=== PATIENT | male | born 1955 ===

== ENCOUNTER → 2020-03-03 | Outpatient (CLI) | payer BC, OTHER ==
[~2020-03-03] MED LIST: ASPI-496 PO; ATOR20TA37 PO; OMEG-107 PO; OMEP-110 PO; VALA500T8 PO; VITA400C43 PO; VITAMIN B12 PO
== END | disposition home or self-care (01) ==
LOC: CFH 06:39
PROVIDERS: ATTEND Internal Medicine Cardiovascular Disease
DX: I08.1 Rheumatic disorders of both mitral and tricuspid valves (principal); I11.9 Hypertensive heart disease without heart failure; R93.1 Abnormal findings on diagnostic imaging of heart and coronary circulation
CPT/HCPCS: 93306

== ENCOUNTER 2020-03-31 09:32 | Day surgery (SDC) | payer BC, OTHER ==
[~2020-03-31] VITALS: Ht 175.3 cm; Wt 76.3 kg
[2020-03-31] MEDS ORDERED: LISI-167 PO (10:17)
[2020-03-31] MEDS ORDERED: ATOR40TA PO (10:18)
[2020-03-31] MEDS ORDERED: vit d3 (10:19)
[2020-03-31 10:21] VITALS: BP 121/66
[2020-03-31] MEDS ORDERED: SODIUM CHLORIDE 0.9% 1,000 ML IV ONE (11:00)
[2020-03-31] MEDS ORDERED: FENTANYL PF 100 MCG/2ML ONE (11:44)
[2020-03-31] MEDS ORDERED: VERAPAMIL 2.5 MG/ML, 2ML ONE (11:44)
[2020-03-31] MEDS ORDERED: MIDAZOLAM 1 MG/ML, 5ML ONE (11:44)
[2020-03-31] MEDS ORDERED: LIDOCAINE-MPF 1%, 5ML ONE (11:44)
[2020-03-31] MEDS ORDERED: HEPARIN 1,000 UNITS/ML, 10ML ONE (11:44)
[2020-03-31] MEDS ORDERED: SODIUM CHLORIDE 0.9% 1,000 ML IV SCH (14:30)
== END 2020-03-31 16:12 | disposition home or self-care (01) ==
LOC: CACL 09:32
PROVIDERS: ATTEND Internal Medicine Cardiovascular Disease
DX: I34.0 Nonrheumatic mitral (valve) insufficiency (principal); I47.1 Supraventricular tachycardia; I10 Essential (primary) hypertension; E78.5 Hyperlipidemia, unspecified; Z79.82 Long term (current) use of aspirin; Z79.899 Other long term (current) drug therapy
CPT/HCPCS: 93458; 99156; C1769; C1894; J1644; J2250; J3010; Q9967

== ENCOUNTER → 2020-04-17 | Outpatient (CLI) | payer BC, OTHER ==
[~2020-04-17] MED LIST changes: +ATOR40TA PO; +LISI-167 PO; +vit d3
== END | disposition home or self-care (01) ==
LOC: STAR 12:27
PROVIDERS: ATTEND Thoracic Surgery (Cardiothoracic Vascular Surgery)
DX: Z20.822 Contact with and (suspected) exposure to COVID-19 (principal)
CPT/HCPCS: 87635

== ENCOUNTER 2020-04-22 04:27 | Inpatient (IN) | payer BC, OTHER ==
[2020-04-21 14:13] LABS: ALANINE AMINOTRANSFERASE 34 U/L (12-78); ALBUMIN 4.3 g/dL (3.4-5.0); ANION GAP 4 mmol/L (5-15); CALCIUM 9.1 mg/dL (8.5-10.1); CHLORIDE 105 mmol/L (98-107); CREATININE 1.24 mg/dL (0.7-1.3)
[2020-04-21 14:14] LABS: INTERNATIONAL NORMALIZED RATIO 1.03 (0.93-1.1); MEAN PLATELET VOLUME 8.2 fL (7.4-10.4); PROTHROMBIN TIME 10.9 Seconds (9.6-11.5)
[2020-04-21 14:16] LABS: ALKALINE PHOSPHATASE 122 U/L (45-117); BILIRUBIN,TOTAL 0.5 mg/dL (0.2-1.0)
[2020-04-21 14:22] LABS: BASOPHILS % (AUTO) 0 % (0-1); EOSINOPHILS % (AUTO) 1 % (1-7); LYMPHOCYTES % (AUTO) 23 % (22-44); MEAN CORPUSCULAR HEMOGLOBIN 31.6 pg (27.5-34.5); MEAN CORPUSCULAR HGB CONC 33.8 g/dL (33.2-36.2); MONOCYTES % (AUTO) 7 % (2-9); NEUTROPHILS % (AUTO) 69 % (42-75); PLATELET COUNT 215 x10^3/uL (130-400); RED BLOOD COUNT 5.01 x10^6/uL (4.38-5.82); RED CELL DISTRIBUTION WIDTH 12.8 % (9.4-14.8)
[2020-04-21 14:23] LABS: MD NO
[2020-04-21 14:52] LABS: MICROSCOPIC NOT IND
[~2020-04-22] VITALS: Ht 175.3 cm; Wt 72.4 kg
[~2020-04-22 04:27] MED LIST changes: +[UNRECOGNIZED DRUG - CODE] PO; -vit d3; +vit d3 PO
[2020-04-22 04:42] VITALS: BP_SYST 122; BP_SYST 125; BP_DIAS 69; BP_DIAS 78
[2020-04-22] MEDS ORDERED: DO NOT GIVE XX SCH (05:00)
[2020-04-22] MEDS ORDERED: INSULIN LISPRO 100 UNITS/ML, PEN SQ-INSULIN SCH (05:00)
[2020-04-22] MEDS ORDERED: CHLORHEXIDINE 15 ML UDC MM SCH (05:00)
[2020-04-22] MEDS ORDERED: DO NOT GIVE MC SCH (05:00)
[2020-04-22] MEDS: SODIUM CHLORIDE FLUSH 10ML SYR IVF SCH ×2 (05:44→20:56)
[2020-04-22] MEDS: MUPIROCIN OINT 2%, 22GM TP SCH ×2 (05:44→20:57)
[2020-04-22] MEDS ORDERED: FENTANYL PF 250 MCG/5ML ONE ×4 (08:31→08:32)
[2020-04-22] MEDS ORDERED: MIDAZOLAM 10MG/2 ML ONE (08:31)
[2020-04-22] MEDS ORDERED: VANCOMYCIN 1,100 MG in SODIUM CHLORIDE 0.9% 250 ML IV PRN (09:00)
[2020-04-22] MEDS ORDERED: EPINEPHRINE 5 MG in SODIUM CHLORIDE 0.9% 245 ML IV PRN (09:00)
[2020-04-22] MEDS ORDERED: POTASSIUM CHLORIDE 80 MEQ, SODIUM BICARBONATE 8.4% 10 MEQ, MAGNESIUM SULFATE 0.5 GM, LI... IV PRN (09:00)
[2020-04-22] MEDS ORDERED: ALBUMIN HUMAN 5% 500 ML IV PRN (09:00)
[2020-04-22] MEDS ORDERED: PHENYLEPHRINE 50 MG in SODIUM CHLORIDE 0.9% 245 ML IV PRN ×2 (09:00→13:00)
[2020-04-22] MEDS ORDERED: DEXMEDETOMIDINE 200 MCG in SODIUM CHLORIDE 0.9% 48 ML IV PRN ×2 (09:00→13:00)
[2020-04-22] MEDS ORDERED: REGULAR INSULIN 100 UNITS in SODIUM CHLORIDE 0.9% 99 ML IV PRN ×2 (09:00→13:00)
[2020-04-22] MEDS ORDERED: CEFUROXIME 1.5 GM in SODIUM CHLORIDE 0.9% 50 ML IVPB PRN (09:00)
[2020-04-22] MEDS ORDERED: MANNITOL PMX 20% 500 ML IVPB PRN (09:00)
[2020-04-22] MEDS ORDERED: PROPOFOL 10 MG/ML, 20ML ONE (09:52)
[2020-04-22] MEDS ORDERED: ROCURONIUM 10MG/ML,5ML ONE ×2 (09:52)
[2020-04-22] MEDS ORDERED: AMINOCAPROIC ACID 250 MG/ML, 20ML ONE ×2 (09:52)
[2020-04-22] MEDS ORDERED: PROTAMINE SULFATE 10 MG/ML, 25ML ONE ×2 (10:23)
[2020-04-22] MEDS ORDERED: SODIUM BICARBONATE 1 MEQ/ML, 50ML VIAL ONE (12:21)
[2020-04-22] MEDS ORDERED: ALBUMIN HUMAN 25% 50 ML ONE (12:22)
[2020-04-22] MEDS ORDERED: LIDOCAINE 2%, 20ML ONE (12:22)
[2020-04-22] MEDS ORDERED: methylPREDNISolone SOD SUCC 125 MG/2 ML ONE (12:22)
[2020-04-22] MEDS ORDERED: HEPARIN 1,000 UNITS/ML, 30ML ONE (12:22)
[2020-04-22 12:38] LABS: GLUCOSE BY BLOOD GAS ANALYZER 144 mg/dL (70-110); HEMOGLOBIN BY BLOOD GAS ANALYZ 12.8 g/dL (14.0-18.0); POTASSIUM BY BLOOD GAS ANALYZR 4.3 mmol/L (3.6-5.5)
[2020-04-22 12:57] LABS: INTERNATIONAL NORMALIZED RATIO 1.37 (0.93-1.1); PROTHROMBIN TIME 14.6 Seconds (9.6-11.5)
[2020-04-22] MEDS ORDERED: SODIUM BICARB 8.4%, 50ML SYRINGE ONE (12:57)
[2020-04-22] MEDS ORDERED: EPINEPHRINE 5 MG in SODIUM CHLORIDE 0.9% 245 ML IVPB PRN (13:00)
[2020-04-22] MEDS: KSCALE TO 4.5 IV SCH ×2 (13:00→19:00)
[2020-04-22] MEDS ORDERED: VANCOMYCIN 1,100 MG in SODIUM CHLORIDE 0.9% 250 ML IV SCH (13:00)
[2020-04-22] MEDS ORDERED: ACETAMINOPHEN 325 MG TABLET PO PRN (13:00)
[2020-04-22] MEDS ORDERED: ACETAMINOPHEN 650 MG SUPP PR PRN (13:00)
[2020-04-22] MEDS ORDERED: BISACODYL 5 MG EC TABLET PO PRN (13:00)
[2020-04-22] MEDS ORDERED: OXYcodone IR 5MG TABLET PO PRN (13:00)
[2020-04-22] MEDS ORDERED: NITROGLYCERIN/D5W PMX 250 ML IV PRN (13:00)
[2020-04-22] MEDS ORDERED: PROCHLORPERAZINE 5 MG/ML, 2ML IV PRN (13:00)
[2020-04-22] MEDS ORDERED: CEFUROXIME 1.5 GM in SODIUM CHLORIDE 0.9% 50 ML IVPB SCH (13:00)
[2020-04-22] MEDS ORDERED: BISACODYL 10 MG SUPP PR PRN (13:00)
[2020-04-22] MEDS ORDERED: DOBUTAMINE 250 MG in SODIUM CHLORIDE 0.9% 230 ML IV PRN (13:00)
[2020-04-22] MEDS ORDERED: ONDANSETRON 2MG/ML, 2ML IVPush PRN (13:00)
[2020-04-22] MEDS ORDERED: HYDROcodone/APAP 10/325 MG TABLET PO PRN (13:00)
[2020-04-22] MEDS ORDERED: SODIUM CHLORIDE 0.9% 1,000 ML IV SCH (13:00)
[2020-04-22] MEDS ORDERED: PHARMACY INSTRUCTION (CSU AMIODARONE) MC SCH (13:00)
[2020-04-22] MEDS ORDERED: VASOPRESSIN 20 UNIT in SODIUM CHLORIDE 0.9% 99 ML IV PRN (13:00)
[2020-04-22] MEDS: LACTATED RINGERS 500 ML IVBOLUS PRN ×5 (13:00→20:01)
[2020-04-22] MEDS ORDERED: MIDAZOLAM 1 MG/ML, 2ML IV PRN (13:00)
[2020-04-22] MEDS: SODIUM BICARB 8.4%, 50ML SYRINGE IVPush PRN ×4 (14:00→18:05)
[2020-04-22] MEDS: MAGNESIUM SULFATE 1 GM in SODIUM CHLORIDE 0.9% 50 ML IV SCH (14:26)
[2020-04-22] MEDS ORDERED: ALBUMIN HUMAN 5% 500 ML IV ONE (15:30)
[2020-04-22] MEDS ORDERED: LACTATED RINGERS 1,000 ML IVBOLUS PRN (15:30)
[2020-04-22] MEDS: FENTANYL PF 100 MCG/2ML IVPush PRN ×2 (15:43→18:28)
[2020-04-22] MEDS ORDERED: INSULIN REGULAR 100 UNITS/ML, 3ML VIAL ONE (17:19)
[2020-04-22] MEDS ORDERED: POTASSIUM CHLORIDE PMX 100 ML IV ONE (19:00)
[2020-04-22] MEDS: DOCUSATE 100 MG CAPSULE PO SCH (20:55)
[2020-04-22] MEDS: HYDROcodone/APAP 5/325 TABLET PO PRN (20:56)
[2020-04-22] MEDS: MUPIROCIN OINT 2%, 22GM NAS SCH (20:56)
[2020-04-22] MEDS: VANCOMYCIN 1,100 MG in SODIUM CHLORIDE 0.9% 250 ML IV SCH (22:01)
[2020-04-22] MEDS: CEFUROXIME 1.5 GM in SODIUM CHLORIDE 0.9% 50 ML IVPB SCH (23:06)
[2020-04-23] MEDS: KSCALE TO 4.5 IV SCH ×2 (01:00→06:45)
[2020-04-23] MEDS: HYDROcodone/APAP 5/325 TABLET PO PRN ×2 (05:21→22:05)
[2020-04-23 06:10] LABS: BASOPHILS % (AUTO) 1 % (0-1); EOSINOPHILS % (AUTO) 0 % (1-7); LYMPHOCYTES % (AUTO) 4 % (22-44); MEAN CORPUSCULAR HEMOGLOBIN 31.8 pg (27.5-34.5); MEAN CORPUSCULAR HGB CONC 33.8 g/dL (33.2-36.2); MEAN PLATELET VOLUME 8.2 fL (7.4-10.4); MONOCYTES % (AUTO) 8 % (2-9); NEUTROPHILS % (AUTO) 87 % (42-75); PLATELET COUNT 143 x10^3/uL (130-400); RED BLOOD COUNT 3.49 x10^6/uL (4.38-5.82)
[2020-04-23 06:24] LABS: ANION GAP 3 mmol/L (5-15); CALCIUM 7.5 mg/dL (8.5-10.1); CHLORIDE 114 mmol/L (98-107); CREATININE 0.91 mg/dL (0.7-1.3)
[2020-04-23 06:37] LABS: INTERNATIONAL NORMALIZED RATIO 1.1 (0.93-1.1); PROTHROMBIN TIME 11.7 Seconds (9.6-11.5)
[2020-04-23 07:13] LABS: MD SCAN
[2020-04-23] MEDS: WARFARIN BIOPROSTHETIC VALVE PROTOCOL 2-3 XX SCH (09:00)
[2020-04-23] MEDS: METOPROLOL TARTRATE 25 MG TAB PO/NG SCH ×2 (09:38→22:27)
[2020-04-23] MEDS: SODIUM CHLORIDE FLUSH 10ML SYR IVF SCH ×2 (09:38→22:28)
[2020-04-23] MEDS: CHLORHEXIDINE 15 ML UDC MM SCH ×2 (09:39→22:03)
[2020-04-23] MEDS: ASPIRIN 81 MG TABLET EC PO SCH (09:39)
[2020-04-23] MEDS: MUPIROCIN OINT 2%, 22GM NAS SCH ×2 (09:39→22:05)
[2020-04-23] MEDS: DOCUSATE 100 MG CAPSULE PO SCH ×2 (09:39→22:03)
[2020-04-23] MEDS: VANCOMYCIN 1,100 MG in SODIUM CHLORIDE 0.9% 250 ML IV SCH (09:52)
[2020-04-23] MEDS: CEFUROXIME 1.5 GM in SODIUM CHLORIDE 0.9% 50 ML IVPB SCH (11:46)
[2020-04-23] MEDS: MAGNESIUM SULFATE 1 GM in SODIUM CHLORIDE 0.9% 50 ML IV SCH (13:32)
[2020-04-23] MEDS ORDERED: WARFARIN 5 MG TABLET PO-COUM ONE (18:00)
[2020-04-23] MEDS: INSULIN LISPRO 100 UNITS/ML, PEN SQ-INSULIN SCH (21:00)
[2020-04-23 21:42] VITALS: BP 111/70
[2020-04-24 04:03] VITALS: BP 145/71
[2020-04-24 04:43] LABS: BASOPHILS % (AUTO) 0 % (0-1); EOSINOPHILS % (AUTO) 0 % (1-7); LYMPHOCYTES % (AUTO) 7 % (22-44); MEAN CORPUSCULAR HEMOGLOBIN 31.8 pg (27.5-34.5); MEAN CORPUSCULAR HGB CONC 34.2 g/dL (33.2-36.2); MEAN PLATELET VOLUME 8.3 fL (7.4-10.4); MONOCYTES % (AUTO) 8 % (2-9); NEUTROPHILS % (AUTO) 84 % (42-75); PLATELET COUNT 125 x10^3/uL (130-400); RED CELL DISTRIBUTION WIDTH 13.2 % (9.4-14.8)
[2020-04-24 04:55] LABS: INTERNATIONAL NORMALIZED RATIO 1.07 (0.93-1.1); PROTHROMBIN TIME 11.4 Seconds (9.6-11.5)
[2020-04-24 04:56] LABS: ANION GAP 2 mmol/L (5-15); CALCIUM 8.2 mg/dL (8.5-10.1); CHLORIDE 106 mmol/L (98-107)
[2020-04-24 04:57] LABS: CREATININE 0.87 mg/dL (0.7-1.3)
[2020-04-24 05:46] LABS: MD SCAN
[2020-04-24] MEDS: INSULIN LISPRO 100 UNITS/ML, PEN SQ-INSULIN SCH ×3 (07:00→16:00)
[2020-04-24] MEDS: CHLORHEXIDINE 15 ML UDC MM SCH ×2 (08:07→20:14)
[2020-04-24] MEDS: ASPIRIN 81 MG TABLET EC PO SCH (08:08)
[2020-04-24] MEDS: DOCUSATE 100 MG CAPSULE PO SCH ×2 (08:08→20:13)
[2020-04-24] MEDS: SODIUM CHLORIDE FLUSH 10ML SYR IVF SCH ×2 (08:08→20:14)
[2020-04-24] MEDS: MUPIROCIN OINT 2%, 22GM NAS SCH ×2 (08:09→20:14)
[2020-04-24] MEDS ORDERED: POTASSIUM CHLORIDE 10 MEQ TABLET.ER PO SCH (09:00)
[2020-04-24] MEDS ORDERED: METOPROLOL TARTRATE 25 MG TAB PO/NG SCH (09:00)
[2020-04-24] MEDS: WARFARIN BIOPROSTHETIC VALVE PROTOCOL 2-3 XX SCH (09:00)
[2020-04-24 09:22] VITALS: BP 114/64
[2020-04-24] MEDS: OMEPRAZOLE 20 MG CAPSULE.DR PO SCH (11:02)
[2020-04-24] MEDS: FUROSEMIDE 40 MG/4 ML IV SCH (11:02)
[2020-04-24] MEDS: POTASSIUM CHLORIDE 20 MEQ TAB.ER.PRT PO SCH (11:02)
[2020-04-24 13:44] VITALS: BP 118/70
[2020-04-24] MEDS: MAGNESIUM SULFATE 1 GM in SODIUM CHLORIDE 0.9% 50 ML IV SCH (14:16)
[2020-04-24] MEDS ORDERED: WARFARIN 5 MG TABLET PO-COUM ONE (18:00)
[2020-04-24 20:07] VITALS: BP 103/65
[2020-04-24] MEDS: ATORVASTATIN 40 MG TABLET PO SCH (20:13)
[2020-04-25 03:13] LABS: BASOPHILS % (AUTO) 0 % (0-1); EOSINOPHILS % (AUTO) 0 % (1-7); LYMPHOCYTES % (AUTO) 9 % (22-44); MEAN CORPUSCULAR HGB CONC 34.2 g/dL (33.2-36.2); MEAN PLATELET VOLUME 8.7 fL (7.4-10.4); MONOCYTES % (AUTO) 8 % (2-9); NEUTROPHILS % (AUTO) 82 % (42-75); PLATELET COUNT 136 x10^3/uL (130-400); RED BLOOD COUNT 3.57 x10^6/uL (4.38-5.82); RED CELL DISTRIBUTION WIDTH 12.7 % (9.4-14.8)
[2020-04-25 03:16] VITALS: BP 102/62
[2020-04-25 03:22] LABS: ANION GAP 4 mmol/L (5-15); CALCIUM 8.3 mg/dL (8.5-10.1); CHLORIDE 107 mmol/L (98-107); CREATININE 0.91 mg/dL (0.7-1.3)
[2020-04-25 03:23] LABS: INTERNATIONAL NORMALIZED RATIO 1.21 (0.93-1.1); PROTHROMBIN TIME 12.9 Seconds (9.6-11.5)
[2020-04-25 03:32] LABS: MD SCAN
[2020-04-25] MEDS: POTASSIUM CHLORIDE 20 MEQ TAB.ER.PRT PO SCH (07:55)
[2020-04-25] MEDS: ASPIRIN 81 MG TABLET EC PO SCH (07:55)
[2020-04-25] MEDS: DOCUSATE 100 MG CAPSULE PO SCH ×2 (07:55→21:33)
[2020-04-25] MEDS: FUROSEMIDE 40 MG/4 ML IV SCH (07:56)
[2020-04-25] MEDS: SODIUM CHLORIDE FLUSH 10ML SYR IVF SCH ×2 (07:56→21:32)
[2020-04-25] MEDS: OMEPRAZOLE 20 MG CAPSULE.DR PO SCH (07:56)
[2020-04-25] MEDS: MUPIROCIN OINT 2%, 22GM NAS SCH ×2 (08:00→21:32)
[2020-04-25 08:10] VITALS: BP 124/73
[2020-04-25] MEDS: WARFARIN BIOPROSTHETIC VALVE PROTOCOL 2-3 XX SCH (09:00)
[2020-04-25 13:47] VITALS: BP 110/61
[2020-04-25] MEDS ORDERED: WARFARIN 7.5 MG TABLET PO-COUM SCH (18:00)
[2020-04-25 20:16] VITALS: BP 112/55
[2020-04-25] MEDS: ATORVASTATIN 40 MG TABLET PO SCH (21:32)
[2020-04-26 01:04] VITALS: BP 114/71
[2020-04-26 06:04] LABS: BASOPHILS % (AUTO) 0 % (0-1); EOSINOPHILS % (AUTO) 1 % (1-7); LYMPHOCYTES % (AUTO) 15 % (22-44); MEAN CORPUSCULAR HEMOGLOBIN 31.7 pg (27.5-34.5); MEAN CORPUSCULAR HGB CONC 34.2 g/dL (33.2-36.2); MEAN PLATELET VOLUME 8.3 fL (7.4-10.4); MONOCYTES % (AUTO) 11 % (2-9); NEUTROPHILS % (AUTO) 73 % (42-75); PLATELET COUNT 163 x10^3/uL (130-400); RED BLOOD COUNT 3.85 x10^6/uL (4.38-5.82); RED CELL DISTRIBUTION WIDTH 12.8 % (9.4-14.8)
[2020-04-26 06:05] LABS: MD NO
[2020-04-26 06:13] LABS: INTERNATIONAL NORMALIZED RATIO 1.7 (0.93-1.1)
[2020-04-26 06:15] LABS: ANION GAP 3 mmol/L (5-15); CALCIUM 8.5 mg/dL (8.5-10.1); CHLORIDE 106 mmol/L (98-107); CREATININE 0.86 mg/dL (0.7-1.3)
[2020-04-26 07:00] VITALS: BP 105/62
[2020-04-26] MEDS: WARFARIN BIOPROSTHETIC VALVE PROTOCOL 2-3 XX SCH (08:04)
[2020-04-26] MEDS: DOCUSATE 100 MG CAPSULE PO SCH ×2 (08:16→21:45)
[2020-04-26] MEDS: FUROSEMIDE 40 MG/4 ML IV SCH (08:17)
[2020-04-26] MEDS: ASPIRIN 81 MG TABLET EC PO SCH (08:17)
[2020-04-26] MEDS: OMEPRAZOLE 20 MG CAPSULE.DR PO SCH (08:17)
[2020-04-26] MEDS: POTASSIUM CHLORIDE 20 MEQ TAB.ER.PRT PO SCH (08:17)
[2020-04-26] MEDS: MUPIROCIN OINT 2%, 22GM NAS SCH ×2 (08:17→21:44)
[2020-04-26] MEDS: SODIUM CHLORIDE FLUSH 10ML SYR IVF SCH ×2 (08:18→21:45)
[2020-04-26 12:45] VITALS: BP 107/64
[2020-04-26] MEDS ORDERED: WARFARIN 7.5 MG TABLET PO-COUM ONE (18:00)
[2020-04-26] MEDS: ATORVASTATIN 40 MG TABLET PO SCH (21:44)
[2020-04-26 21:47] VITALS: BP 119/74
[2020-04-27 02:00] VITALS: BP 110/63
[2020-04-27 06:03] LABS: BASOPHILS % (AUTO) 0 % (0-1); EOSINOPHILS % (AUTO) 1 % (1-7); LYMPHOCYTES % (AUTO) 18 % (22-44); MEAN CORPUSCULAR HEMOGLOBIN 31.8 pg (27.5-34.5); MEAN CORPUSCULAR HGB CONC 34.5 g/dL (33.2-36.2); MEAN PLATELET VOLUME 7.9 fL (7.4-10.4); MONOCYTES % (AUTO) 11 % (2-9); NEUTROPHILS % (AUTO) 69 % (42-75); PLATELET COUNT 199 x10^3/uL (130-400); RED BLOOD COUNT 4.14 x10^6/uL (4.38-5.82); RED CELL DISTRIBUTION WIDTH 12.8 % (9.4-14.8)
[2020-04-27 06:08] LABS: ANION GAP 7 mmol/L (5-15); CALCIUM 8.7 mg/dL (8.5-10.1); CHLORIDE 106 mmol/L (98-107)
[2020-04-27 06:19] LABS: MD NO
[2020-04-27 07:21] VITALS: BP 110/67
[2020-04-27] MEDS: DOCUSATE 100 MG CAPSULE PO SCH ×2 (08:06→20:19)
[2020-04-27] MEDS: POTASSIUM CHLORIDE 20 MEQ TAB.ER.PRT PO SCH (08:06)
[2020-04-27] MEDS: OMEPRAZOLE 20 MG CAPSULE.DR PO SCH (08:06)
[2020-04-27] MEDS: ASPIRIN 81 MG TABLET EC PO SCH (08:06)
[2020-04-27] MEDS: FUROSEMIDE 40 MG/4 ML IV SCH (08:07)
[2020-04-27] MEDS: MUPIROCIN OINT 2%, 22GM NAS SCH (08:07)
[2020-04-27] MEDS: SODIUM CHLORIDE FLUSH 10ML SYR IVF SCH ×2 (08:07→20:19)
[2020-04-27 10:36] LABS: INTERNATIONAL NORMALIZED RATIO 1.62 (0.93-1.1); PROTHROMBIN TIME 17.2 Seconds (9.6-11.5)
[2020-04-27 13:39] VITALS: BP 96/65
[2020-04-27] MEDS ORDERED: WARFARIN 10 MG TABLET PO-COUM ONE (18:00)
[2020-04-27 19:03] VITALS: BP 112/61
[2020-04-27] MEDS: ATORVASTATIN 40 MG TABLET PO SCH (20:19)
[2020-04-28 00:42] VITALS: BP 119/67
[2020-04-28 05:09] LABS: ANION GAP 8 mmol/L (5-15); CALCIUM 8.8 mg/dL (8.5-10.1); CHLORIDE 104 mmol/L (98-107); CREATININE 0.94 mg/dL (0.7-1.3)
[2020-04-28 05:36] LABS: INTERNATIONAL NORMALIZED RATIO 1.43 (0.93-1.1); PROTHROMBIN TIME 15.2 Seconds (9.6-11.5)
[2020-04-28 06:49] VITALS: BP 116/69
[2020-04-28] MEDS ORDERED: FENTANYL PF 100 MCG/2ML ONE (07:11)
[2020-04-28] MEDS ORDERED: CEFAZOLIN PMX 1GM/50ML 50 ML ONE (07:11)
[2020-04-28] MEDS ORDERED: MIDAZOLAM 1 MG/ML, 5ML ONE (07:11)
[2020-04-28] MEDS ORDERED: LIDOCAINE 1%, 20ML ONE (07:12)
[2020-04-28] MEDS ORDERED: CEFAZOLIN 1,000 MG ONE (07:12)
[2020-04-28] MEDS ORDERED: CEFAZOLIN PMX 1GM/50ML 50 ML IVPB ONE ×2 (08:00)
[2020-04-28] MEDS: DOCUSATE 100 MG CAPSULE PO SCH ×2 (09:00→20:07)
[2020-04-28] MEDS ORDERED: HOLD MEDICATION MC PRN (09:30)
[2020-04-28] MEDS ORDERED: CEFAZOLIN PMX 1GM/50ML 50 ML IVPB SCH (09:30)
[2020-04-28] MEDS: LISINOPRIL 10 MG TABLET PO SCH ×2 (10:00→20:07)
[2020-04-28 12:13] VITALS: BP 105/70
[2020-04-28] MEDS: ASPIRIN 81 MG TABLET EC PO SCH (14:05)
[2020-04-28] MEDS: OMEPRAZOLE 20 MG CAPSULE.DR PO SCH (14:05)
[2020-04-28] MEDS: SODIUM CHLORIDE FLUSH 10ML SYR IVF SCH ×3 (14:06→20:07)
[2020-04-28] MEDS: ACETAMINOPHEN 325 MG TABLET PO PRN (16:33)
[2020-04-28] MEDS ORDERED: WARFARIN 2.5 MG TABLET PO-COUM ONE (18:00)
[2020-04-28] MEDS ORDERED: WARFARIN 10 MG TABLET PO-COUM ONE (18:00)
[2020-04-28 19:52] VITALS: BP 116/74
[2020-04-28] MEDS: ATORVASTATIN 40 MG TABLET PO SCH (20:07)
[2020-04-29] MEDS ORDERED: CEFAZOLIN PMX 1GM/50ML 50 ML IV ONE
[2020-04-29 00:53] VITALS: BP 98/60
[2020-04-29] MEDS: ACETAMINOPHEN 325 MG TABLET PO PRN (00:59)
[2020-04-29 05:23] LABS: INTERNATIONAL NORMALIZED RATIO 1.7 (0.93-1.1)
[2020-04-29 05:25] LABS: ANION GAP 5 mmol/L (5-15); CALCIUM 8.6 mg/dL (8.5-10.1); CHLORIDE 107 mmol/L (98-107)
[2020-04-29 05:27] LABS: CREATININE 0.99 mg/dL (0.7-1.3)
[2020-04-29 07:49] VITALS: BP 96/62
[2020-04-29] MEDS: SODIUM CHLORIDE FLUSH 10ML SYR IVF SCH ×2 (08:19→08:38)
[2020-04-29] MEDS: WARFARIN BIOPROSTHETIC VALVE PROTOCOL 2-3 XX SCH (08:19)
[2020-04-29] MEDS: ASPIRIN 81 MG TABLET EC PO SCH (08:37)
[2020-04-29] MEDS: LISINOPRIL 10 MG TABLET PO SCH ×2 (08:37→08:38)
[2020-04-29] MEDS: OMEPRAZOLE 20 MG CAPSULE.DR PO SCH (08:37)
[2020-04-29] MEDS: DOCUSATE 100 MG CAPSULE PO SCH (08:37)
[2020-04-29] MEDS ORDERED: WARF-36 PO (10:11)
[2020-04-29] MEDS ORDERED: TRAM50TA2 PO (10:11)
[2020-04-29] MEDS ORDERED: LISI-167 PO (10:11)
[2020-04-29] MEDS ORDERED: FURO-93 PO (10:16)
[2020-04-29] MEDS ORDERED: POTA10TA6 PO (10:16)
== END 2020-04-29 11:51 | disposition home health service (06) | DRG 220 ==
LOC: 5SO 04:27 → CCU 11:24 → 5SO 04-23 15:35 → DCLOUNGE 04-29 11:32
PROVIDERS: ADMIT Thoracic Surgery (Cardiothoracic Vascular Surgery); ATTEND Thoracic Surgery (Cardiothoracic Vascular Surgery)
PROC: B24BZZ4 Ultrasonography of Heart with Aorta, Transesophageal (ICD-10-PCS; 2020-04-22)
PROC: 5A1221Z Performance of Cardiac Output, Continuous (ICD-10-PCS; 2020-04-22)
PROC: 02RG08Z Replacement of Mitral Valve with Zooplastic Tissue, Open Approach (ICD-10-PCS; principal; 2020-04-22 09:00)
PROC: 0JH606Z Insertion of Pacemaker, Dual Chamber into Chest Subcutaneous Tissue and Fascia, Open Approach (ICD-10-PCS; 2020-04-28)
PROC: 02H63JZ Insertion of Pacemaker Lead into Right Atrium, Percutaneous Approach (ICD-10-PCS; 2020-04-28)
PROC: 02HK3JZ Insertion of Pacemaker Lead into Right Ventricle, Percutaneous Approach (ICD-10-PCS; 2020-04-28)
PROC: 4B02XSZ Measurement of Cardiac Pacemaker, External Approach (ICD-10-PCS; 2020-04-28)
DX: I34.0 Nonrheumatic mitral (valve) insufficiency (principal); I44.2 Atrioventricular block, complete; D68.69 Other thrombophilia; E78.5 Hyperlipidemia, unspecified; I10 Essential (primary) hypertension; D72.829 Elevated white blood cell count, unspecified; K21.9 Gastro-esophageal reflux disease without esophagitis; Z79.01 Long term (current) use of anticoagulants; Z00.6 Encounter for examination for normal comparison and control in clinical research program; Z79.899 Other long term (current) drug therapy
CPT/HCPCS: 33208; 36415; 36600; J3490; S0017; 71045; 71046; 80048; 80053; 81003; 82040; 82330; 82800; 82803; 82810; 82947; 82962; 83036; 83735; 84132; 84295; 85014; 85018; 85025; 85049; 85347; 85610; 85730; 86850; 86900; 86923; 87081; 88305; 93005; 93312; 93321; 93325; 93880; 94002; 99156; 99157; C1779; C1785; C1892; G0378; J0690; J0697; J1644; J1815; J1940; J2250; J2704; J2720; J3010; J3370; J3475; J3480; J7120; P9045; P9047; C1751; C1760; J2930; J7050

== ENCOUNTER 2020-12-04 08:42 | Outpatient (CLI) | payer BC, OTHER ==
[~2020-12-04 08:42] MED LIST changes: +CHLORHEXIDINE 15 ML UDC ONE; +FURO-93 PO; +POTA10TA6 PO; +TRAM50TA2 PO; +WARF-36 PO
== END 2020-12-04 23:59 | disposition home or self-care (01) ==
LOC: CFH 08:42
PROVIDERS: ATTEND Student in an Organized Health Care Education/Training Program
DX: I08.8 Other rheumatic multiple valve diseases (principal)
CPT/HCPCS: 93306